=== PATIENT | male | born 1995 | race Caucasian/White ===

== ENCOUNTER → 2016-06-19 | Outpatient (CLI) | payer OTHER ==
[~2016-06-19] MED LIST: ACET650S13 PO; CEPH500C PO; DOXY100C42 PO; DXCC100C PO; SULF1TAB38 PO; TYLENOL PRN
--- NOTE | 2016-06-19 13:09 | Diagnostic Imaging Report ---
CLINICAL INDICATION: Patient with concussion on 06/16/2016 and has had headaches since. EXAM: Axial CT scan of the brain performed without IV contrast. COMPARISON: Head CT without IV contrast dated 10/28/2013. FINDINGS: There is no evidence of acute cerebral infarct, intracranial hemorrhage, or gross mass effect. There is normal guan-white matter distinction. The brain parenchymal volume appears appropriate for patient's age. There is no significant midline shift or herniation. There is no evidence of hydrocephalus. Again seen cavum septum pellucidum and cavum vergae. The basal cisterns are unremarkable. The skull, extracranial soft tissue, and orbits are unremarkable. The paranasal sinuses are unremarkable. IMPRESSION: Stable CT scan of the brain with no evidence of acute intracranial process. Dictated by: Dictated on workstation # [id number]
== END ==
LOC: RAD 12:47
PROVIDERS: ATTEND Family Medicine
DX: S06.0X1A Concussion with loss of consciousness of 30 minutes or less, initial encounter (principal); X58.XXXA Exposure to other specified factors, initial encounter; Y99.8 Other external cause status
CPT/HCPCS: 70450

== ENCOUNTER 2016-12-12 23:51 | Emergency (ER) | payer OTHER ==
[~2016-12-12] VITALS: Ht 175.3 cm; Wt 74.8 kg
--- OUTSIDE RECORDS SUMMARY | 2016-12-12 23:59 | XMS REPORT | Clinical Summary ---
Author Author Admin, Lenin Organization [facility] Address Unknown Phone Unavailable Allergies, Adverse Reactions, Alerts Allergy Name Reaction Description Start Date Severity Status Provider No Known Allergies [facility] Conditions or Problems Problem Name Problem Code Onset Date Status Entry Date Provider Comment Standard Description Annotate Std exposure V01.6 Active Jony Toledo MD Contact with or exposure to venereal diseases Medication List Medication Instructions Start Date Stop Date Generic Name NDC Status Provider Patient Instruction No Drug Therapy Prescribed - none known did ask Heide Femi Vital Signs Date Name Value Unit Range Description blood pressure, diastolic - 8462-4 82 mm[Hg] BP au blood pressure, systolic - 8480-6 135 mm[Hg] BP sys pulse rate E&M - 8867-4 57 /min Heart rate temperature E&M 97.9 [degF] Body temperature weight E&M - 3141-9 168.7 [lb_av] Weight Measured Encounters Code Encounter Date Provider Facility CPT-85256 Level 3 Est. Patient 15:39:21 CDT Jony Toledo MD [facility]
--- OUTSIDE RECORDS SUMMARY | 2016-12-12 23:59 | XMS REPORT | Continuity of Care Document ---
Author Author [facility] Organization [facility] Address Unknown Phone Unavailable Allergies Active Description Code Type Severity Reaction Onset Reported/Identified Relationship to Patient Clinical Status Yes No Known Drug Allergies [id number] Drug Allergy Unknown N/ A 11/14/2007 Medications Problems Date Dx Coded Attending Type Code Diagnosis Diagnosed By 05/24/2012 Ot 276.51 DEHYDRATION 05/24/2012 Ot 558.9 NONINF GASTROENTERIT NEC 10/29/2013 IBRAHIMA PARMAR MD Ot 368.13 VISUAL DISCOMFORT 10/29/2013 IBRAHIMA PARMAR MD Ot 462 ACUTE PHARYNGITIS 10/29/2013 IBRAHIMA PARMAR MD Ot 723.1 CERVICALGIA 10/29/2013 IBRAHIMA PARMAR MD Ot 780.79 OTH MALAISE FATIGUE 06/19/2016 DERRICK PAUL Ot 719.06 JOINT EFFUSION-L/LEG 06/19/2016 DERRICK PAUL Ot 727.51 POPLITEAL SYNOVIAL CYST 06/19/2016 DERRICK PAUL Ot 836.0 TEAR MED MENISC KNEE-CUR 06/19/2016 DERRICK PAULP Ot E000.8 OTHER EXTERNAL CAUSE STATUS 06/19/2016 DERRICK PAUL Ot E928.9 ACCIDENT NOS 07/05/2016 IBRAHIMA PARMAR MD Ot S06.0X1A CONCUSSION W LOC OF 30 MINUTES OR LESS, 07/05/2016 IBRAHIMA PARMAR MD Ot X58.XXXA EXPOSURE TO OTHER SPECIFIED FACTORS, INI 07/05/2016 IBRAHIMA PARMAR MD Ot Y99.8 OTHER EXTERNAL CAUSE STATUS Procedures Code Description Performed By Performed On 06.15 SPINAL TAP 2013 Results Encounters ACCT No. Visit Date/Time Discharge Status Pt. Type Provider Facility Loc./Unit Complaint [id number] 06/19/2016 12:47:00 2016 23:59:59 CLS Outpatient IBRAHIMA PARMAR MD [facility] RAD CONCUSSION WITH LOC [id number] 10/28/2013 16:13:00 2013 11:20:00 DIS Inpatient IBRAHIMA PARMAR MD [facility] 4TH HEADACHE,FEVER,SPINAL TAP [id number] 04/15/2013 15:19:00 2013 23:59:59 CLS Outpatient DERRICK PAUL [facility] RAD RT KNEE MEDIAL MENISCUS TEAR [id number] 05/23/2012 09:30:00 Document Registration
--- OUTSIDE RECORDS SUMMARY | 2016-12-12 23:59 | XMS REPORT | Clinical Summary ---
Author Author Admin, CHRISTIANA Organization [facility] Address Unknown Phone Unavailable Allergies, Adverse Reactions, Alerts Allergy Name Reaction Description Start Date Severity Status Provider No Known Allergies [facility] Conditions or Problems Problem Name Problem Code Onset Date Status Entry Date Provider Comment Standard Description Annotate Std exposure V01.6 Active Jony Toledo MD Contact with or exposure to venereal diseases Medication List Medication Instructions Start Date Stop Date Generic Name NDC Status Provider Patient Instruction No Drug Therapy Prescribed - none known did ask [facility] Vital Signs Date Name Value Unit Range Description blood pressure, diastolic - 8462-4 82 mm[Hg] BP au blood pressure, systolic - 8480-6 135 mm[Hg] BP sys pulse rate E&M - 8867-4 57 /min Heart rate temperature E&M 97.9 [degF] Body temperature weight E&M - 3141-9 168.7 [lb_av] Weight Measured Diagnostic Results Date Name Value Unit Range Description Lab Report: CBC W/DIFF, Comp. Metabolic Panel, UADIP W/MICRO, AUTO - Chemistry sodium, serum 140 mmol/L 681-263 4458/06/11 potassium, serum 4.4 mmol/L 3.5-5.2 chloride, serum 99 mmol/L 98-107 carbon dioxide, venous blood 31.2 mmol/L 21.0-32.0 blood glucose 93 mg/dL 65-110 urea nitrogen, blood 16 mg/dL 7-18 creatinine, serum 1.00 mg/dL 0.60-1.30 alanine aminotransferase (SGPT), serum 26 U/L 12-78 aspartate aminotransferase (SGOT), serum 23 U/L 15-37 calcium, serum 9.6 mg/dL 8.5-10.1 bilirubin, serum, total 0.40 mg/dL 0.00-1.00 protein, total urine random Negative mg/dL Negative RBC, urine, dipstick Negative Negative Lab Report: CBC W/DIFF, Comp. Metabolic Panel, UADIP W/MICRO, AUTO - Hematology leukocyte count, blood 8.2 10^3/MM^3 10*3/mm3 4.6-10.2 neutrophils as percent of blood leukocytes 60.0 % 42.2-75.2 monocytes as percent of blood leukocytes 7.3 % 1.7-9.3 lymphocytes as percent of blood leukocytes 30.4 % 20.5-51.1 erythrocyte (RBC) count 5.24 10^6/MM^3 10*6/mm3 4.69-6.13 hemoglobin, blood 15.1 g/dL 13.5-17.5 hematocrit, blood 44.2 % 41.0-53.0 mean corpuscular volume, RBC 84 fL 80-97 mean corpuscular hemoglobin, RBC 28.9 pg 27.0-31.2 mean corpuscular hemoglobin concentration, RBC 34.2 G/DL % 31.8- 35.4 red blood cell distribution width 13.9 % 11.6-14.8 platelet count 254 10^3/MM^3 10*3/mm3 142-424 Lab Report: CBC W/DIFF, Comp. Metabolic Panel, UADIP W/MICRO, AUTO - Urinalysis urine color Yellow Colorless;Lightyellow;Straw;Yellow appearance, urine Clear Clear specific gravity, urine 1.025 1.000-1.030 pH, urine, semiquantitative 6.5 5.0-8.5 urobilinogen, urine, semiquantitative (dipstick) 0.2 Normal leukocyte esterase, urine, by dipstick Negative Negative nitrite, urine, semiquantitative Negative Negative glucose, urine, semiquantitative Negative Negative ketones, urine, by test strip Negative Negative bilirubin, urine Negative Negative Lab Report: Chlamydia/GC APTIMA/14632, HIV-1/2 Agn/Joyce/26613, HEPATITIS ... - Chemistry hepatitis B surface antigen NON-REACTIVE NON-REACTIVE Lab Report: Chlamydia/GC APTIMA/31601, HIV-1/2 Agn/Joyce/13177, HEPATITIS ... - Lab chlamydia DNA probe NOT DETECTED NOT DETECTED Lab Report: Chlamydia/GC APTIMA/71668, HIV-1/2 Agn/Joyce/33525, HEPATITIS ... - Microbiology Neisseria gonorrhoeae DNA probe NOT DETECTED NOT DETECTED Encounters Code Encounter Date Provider Facility CPT-42976 Level 3 Est. Patient 15:39:21 CDT Jony Toledo MD [facility]
--- OUTSIDE RECORDS SUMMARY | 2016-12-12 23:59 | XMS REPORT | Clinical Summary ---
Author Author Admin, CHRISTIANA Organization [facility] Address Unknown Phone Unavailable Allergies, Adverse Reactions, Alerts Allergy Name Reaction Description Start Date Severity Status Provider No Known Allergies [facility] Conditions or Problems Problem Name Problem Code Onset Date Status Entry Date Provider Comment Standard Description Annotate Std exposure V01.6 Active Jony Toledo MD Contact with or exposure to venereal diseases Medication List Medication Instructions Start Date Stop Date Generic Name NDC Status Provider Patient Instruction No Drug Therapy Prescribed - none known did ask [facility] Vital Signs Date Name Value Unit [...] AUTO - Chemistry sodium, serum 140 mmol/L 610-279 9555/06/11 potassium, serum 4.4 mmol/L 3.5-5.2 chloride, serum [...] bilirubin, urine Negative Negative Lab Report: Chlamydia/GC APTIMA/95050, HIV-1/2 Agn/Joyce/10555, HEPATITIS ... - Chemistry hepatitis B surface antigen NON-REACTIVE NON-REACTIVE Lab Report: Chlamydia/GC APTIMA/37801, HIV-1/2 Agn/Joyce/56825, HEPATITIS ... - Lab chlamydia DNA probe NOT DETECTED NOT DETECTED Lab Report: Chlamydia/GC APTIMA/42448, HIV-1/2 Agn/Joyce/97760, HEPATITIS ... - Microbiology Neisseria gonorrhoeae DNA probe NOT DETECTED NOT DETECTED Encounters Code Encounter Date Provider Facility CPT-57085 Level 3 Est. Patient 15:39:21 CDT Jony Toledo MD [facility]
--- OUTSIDE RECORDS SUMMARY | 2016-12-12 23:59 | XMS REPORT | Clinical Summary ---
Author Author Admin, CHRISTIANA Organization [facility] Address Unknown Phone Unavailable Allergies, Adverse Reactions, Alerts Allergy Name Reaction Description Start Date Severity Status Provider No Known Allergies [facility] Conditions or Problems Problem Name Problem Code Onset Date Status Entry Date Provider Comment Standard Description Annotate Std exposure V01.6 Active Jony Toledo MD Contact with or exposure to venereal diseases Medication List Medication Instructions Start Date Stop Date Generic Name NDC Status Provider Patient Instruction No Drug Therapy Prescribed - none known did ask [facility] Vital Signs Date Name Value Unit [...] AUTO - Chemistry sodium, serum 140 mmol/L 931-418 9193/06/11 potassium, serum 4.4 mmol/L 3.5-5.2 chloride, serum [...] bilirubin, urine Negative Negative Lab Report: Chlamydia/GC APTIMA/87639, HIV-1/2 Agn/Joyce/92925, HEPATITIS ... - Chemistry hepatitis B surface antigen NON-REACTIVE NON-REACTIVE Lab Report: Chlamydia/GC APTIMA/38609, HIV-1/2 Agn/Joyce/30123, HEPATITIS ... - Lab chlamydia DNA probe NOT DETECTED NOT DETECTED Lab Report: Chlamydia/GC APTIMA/47369, HIV-1/2 Agn/Joyce/48255, HEPATITIS ... - Microbiology Neisseria gonorrhoeae DNA probe NOT DETECTED NOT DETECTED Encounters Code Encounter Date Provider Facility CPT-64472 Level 3 Est. Patient 15:39:21 CDT Jony Toledo MD [facility]
--- OUTSIDE RECORDS SUMMARY | 2016-12-12 23:59 | XMS REPORT | Clinical Summary ---
Author Author Admin, CHRISTIANA Organization [facility] Address Unknown Phone Unavailable Allergies, Adverse Reactions, Alerts Allergy Name Reaction Description Start Date Severity Status Provider No Known Allergies [facility] Conditions or Problems Problem Name Problem Code Onset Date Status Entry Date Provider Comment Standard Description Annotate Std exposure V01.6 Active Jony Toledo MD Contact with or exposure to venereal diseases Medication List Medication Instructions Start Date Stop Date Generic Name NDC Status Provider Patient Instruction No Drug Therapy Prescribed - none known did ask [facility] Vital Signs Date Name Value [...] AUTO - Chemistry sodium, serum 140 mmol/L 646-343 2128/06/11 potassium, serum 4.4 mmol/L 3.5-5.2 chloride, serum [...] strip Negative Negative bilirubin, urine Negative Negative Encounters Code Encounter Date Provider Facility CPT-15168 Level 3 Est. Patient 15:39:21 CDT Jony Toledo MD [facility]
--- NOTE | 2016-12-13 02:16 | ED Lower Extremity ---
General Chief Complaint: Lower Extremity Stated Complaint: LEFT KNEE PAIN-PLAYING FLAG FOOTBALL Nursing Triage Note: pt injured knee while playing flag football. Nursing Sepsis Screen: No Definite Risk Source: patient Exam Limitations: no limitations History of Present Illness Time seen by provider: 02:16 Initial Comments 21-year-old male patient presents to the emergency department with complaints of injuring his right knee while playing flag football earlier today. Reports jumping to catch a ball and when he landed he twisted the knee. Onset: this afternoon Pain/Injury Location: left knee Method of Injury: sports injury, twisted Modifying Factors: Worse With Movement Allergies and Home Medications Allergies Coded Allergies: No Known Drug Allergies (Verified Allergy, Unknown, 11/14/07) Home Medications Cephalexin Monohydrate 500 Mg Capsule, 500 MG PO QID, (Reported) Doxycycline Monohydrate 100 Mg Capsule, 100 MG PO BID, (Reported) Hydrocodone/Acetaminophen 1 Each Tablet, 1 EACH PO Q4H PRN for PAIN, #14 Ref 0 Prescribed by: DENISSE RIVERA on 12/13/16 0227 Constitutional: no symptoms reported Respiratory: no symptoms reported Cardiovascular: no symptoms reported Musculoskeletal: see HPI, No back pain, joint pain, joint swelling, No neck pain Skin: no symptoms reported Psychiatric/Neurological: Denies Numbness, Denies Paresthesia, Denies Tingling , Denies Weakness All Other Systems Reviewed Negative Unless Noted: Yes (Negative excepted noted.) Past Ryhtuvh-Jismca-Mqkazw Hx Patient Social History Alcohol Use: Occasionally Uses Recreational Drug Use: No Smoking Status: Never a Smoker Recent Foreign Travel: No Contact w/Someone Who Travel: No Recent Infectious Disease Expo: No Surgeries History of Surgeries: Yes (bilateral knee surgery) Respiratory History of Respiratory Disorde: No Cardiovascular History of Cardiac Disorders: No Neurological History of Neurological Disord: Yes Neurological Disorders: Concussion Reproductive System Hx Reproductive Disorders: No Genitourinary History of Genitourinary Disor: No Gastrointestinal History of Gastrointestinal Di: No Musculoskeletal History of Musculoskeletal Dis: Yes Musculoskeletal Disorders: Fractures, Gout (left shoulder dislocation) Endocrine History of Endocrine Disorders: No HEENT History of HEENT Disorders: Yes (Zuhair-Vazquez) Reviewed Nursing Assessment Reviewed/Agree w Nursing PMH: Yes Family Medical History Significant Family History: Cancer, Diabetes, Renal Disease Family Medial History: No Family History of: AIDS Abdominal aortic aneurysm Motley's disease Alcoholism Alzheimer's disease Aphasia Arthritis Asthma Cancer of mouth Cardiovascular disease Cataracts Colon cancer Completed stroke Congenital disease Congenital heart disease Coronary thrombosis Cystic fibrosis Deafness or hearing loss Dementia Diabetes mellitus Drug abuse Dysphasia Fibrocystic disease of breast Gastroenteritis Glaucoma Headache disorder Hypercholesterolemia Hypertension Infertility Kidney disease Myocardial infarction Neoplasm Osteoporosis Parkinson's disease Prostate cancer Psychosocial problem Respiratory disorder Seizure disorder Severe allergy Thyroid disease Tuberculosis Visual disorder Physical Exam Vital Signs Vital Sign - Last 12Hours 12/13/16 01:43 Temp 98.9 Pulse 61 Resp 20 B/P (MAP) 125/76 Pulse Ox 99 O2 Delivery Room Air Capillary Refill : Less Than 3 Seconds General Appearance: WD/WN, no apparent distress Cardiovascular: normal peripheral pulses, regular rate, rhythm, no edema, no murmur Respiratory: lungs clear, normal breath sounds, no respiratory distress, no accessory muscle use Hips: bilateral hip non-tender, bilateral hip normal inspection, bilateral hip normal range of motion, bilateral hip no evidence of injury Legs: bilateral leg non-tender, bilateral leg normal inspection, bilateral leg normal range of motion, bilateral leg no evidence of injury Knees: right knee non-tender, right knee normal inspection, right knee normal range of motion, right knee no evidence of injury, left knee bone tenderness ( medial knee), left knee joint effusion, left knee pain, left knee soft tissue tenderness, left knee swelling Ankles: bilateral ankle non-tender, bilateral ankle normal inspection, bilateral ankle normal range of motion, bilateral ankle no evidence of injury Feet: bilateral foot non-tender, bilateral foot normal inspection, bilateral foot normal range of motion, bilateral foot no evidence of injury Neurologic/Tendon: normal sensation, normal motor functions, normal tendon functions, responds to pain, no evidence tendon injury Neurologic/Psychiatric: no motor/sensory deficits, alert, normal mood/affect, oriented x 3 Skin: normal color, warm/dry Progress/Results/Core Measures Results/Orders My Orders Orders - DENISSE RIVERA Knee, Left, 3 Views (12/13/16 01:20) Knee Immobilizer (12/13/16 02:25) Rx-Hydrocodone/Apap 5-325 Mg (Rx-Vicodin (12/13/16 02:30) Vital Signs/I&O Vital Sign - Last 12Hours 12/13/16 12/13/16 01:43 02:34 Temp 98.9 98.0 Pulse 61 70 Resp 20 20 B/P (MAP) 125/76 Pulse Ox 99 99 O2 Delivery Room Air Blood Pressure Mean: 92 Diagnostic Imaging Diagonstic Imaging: Xray Plain Films/CT/US/NM/MRI: knee Comments No acute bony abnormality noted Reviewed: Reviewed/Discussed (with Dr. Tracey) Departure Communication (Admissions) Progress Notes Diagnostic findings discussed with the patient and mother is present in the room. Patient placed in the immobilizer. Discharge to home with follow-up as an outpatient with orthopedics. Patient has seen Dr. Lyons previously for left knee meniscus tear like to see Dr. Lyons as well for this. Impression Impression: Primary Impression: Sprain of knee Qualified Codes: S83.412A - Sprain of medial collateral ligament of left knee , initial encounter Disposition: HOME, SELF-CARE Condition: Improved Departure-Patient Inst. Decision time for Depature: 02:26 Referrals: IBRAHIMA RYAN MD (PCP/Family) Primary Care Physician MEHUL LYONS MD Patient Instructions: Knee Sprain (DC) Add. Discharge Instructions: All discharge instructions reviewed with patient and/or family. Voiced understanding. Medications as instructed. Ibuprofen 800 mg by mouth every 8 hours as needed for pain. Elevate the left knee on pillows. Ice pack for 20 animals as needed. Knee brace as instructed. Follow-up with Dr. Ryan or Dr. Lyons as an outpatient for a recheck and possible need for MRI of the left knee. Call for appointment time. Return to the emergency department for worsened symptoms or any other concerns. Scripts Hydrocodone/Acetaminophen (Hydrocodon -Acetaminophen 5-325) 1 Each Tablet 1 EACH PO Q4H Y for PAIN, #14 TAB 0 Refills Prov: DENISSE RIVERA 12/13/16 DENISSE RIVERA Dec 13, 2016 02:16
[2016-12-13] MEDS ORDERED: HYDR-3812 PO (02:27)
[2016-12-13] MEDS ORDERED: RX-HYDROCODONE/APAP 5/325 MG #4 TAB PK PO PRN (02:30)
[2016-12-13 02:34] VITALS: BP 120/70
--- NOTE | 2016-12-13 07:15 | Diagnostic Imaging Report ---
Left knee at 210 hours. INDICATION: Pain and swelling. 3 views were obtained. FINDINGS: There is no fracture, dislocation or acute bony abnormality evident. The knee joints are fairly well-maintained. The lateral view does suggest that there is a joint effusion present. If there is clinical concern regarding internal derangement, then MRI would be recommended for further study. IMPRESSION: 1. There is no evidence for an acute bony abnormality. 2. There is a joint effusion present. Additional considerations as above. Dictated by: Dictated on workstation # [id number]
== END 2016-12-13 02:34 | disposition home or self-care (01) ==
LOC: EDUNIT# 23:51 → ER 23:55
DX: S83.91XA Sprain of unspecified site of right knee, initial encounter (principal); X58.XXXA Exposure to other specified factors, initial encounter; Y93.62 Activity, american flag or touch football
CPT/HCPCS: 73562; 99283

== ENCOUNTER → 2016-12-21 | Outpatient (CLI) | payer OTHER ==
[~2016-12-21] MED LIST changes: +HYDR-3812 PO
--- NOTE | 2016-12-21 12:46 | Diagnostic Imaging Report ---
PROCEDURE: MRI left joint lower extremity without contrast. TECHNIQUE: Multiplanar, multisequence non contrast-enhanced MRI of the left lower extremity was accomplished. INDICATION: Left knee pain and hyperextension injury. FINDINGS: There is bone marrow contusion seen within the lateral tibial condyle and within the proximal fibula. No macroscopic or depressed fracture of the lateral tibial plateau is seen. There is also a bone marrow contusion involving the medial femoral condyle anteriorly and medially. Tiny suprapatellar fluid, probably physiologic is seen. The extensor mechanism appears intact. The ACL and the PCL appear intact. There is an oblique tear extending to the tibial surface of the posterior horn of the medial meniscus. The tear extends into the body of the meniscus and also extends centrally into the root of the meniscus posteriorly. The anterior horn is intact. The lateral meniscus is intact. The MCL and the lateral collateral ligament complex appear intact. Tiny amount of fluid signal at the location of the Barajas's cyst is seen measuring 2 x 3 mm, of questionable significance is noted. The muscle bulk and signal around the knee appear normal. IMPRESSION: 1. There is a medial meniscus tear involving the posterior root, posterior horn and the body of the meniscus. 2. Bone marrow contusions in the lateral tibial condyle, the medial femoral condyle, and involving the proximal fibular shaft. Dictated by: Dictated on workstation # [id number]
== END ==
LOC: RAD 11:15
PROVIDERS: ATTEND Orthopaedic Surgery
DX: S83.242A Other tear of medial meniscus, current injury, left knee, initial encounter (principal); M89.9 Disorder of bone, unspecified; X58.XXXA Exposure to other specified factors, initial encounter; Y99.8 Other external cause status
CPT/HCPCS: 73721